=== PATIENT | male | born 1950 | race Caucasian/White ===

== ENCOUNTER 2021-04-18 16:56 | Inpatient (IN) ==
[2021-04-18 18:26] LABS: Basophils % 0.3 % (0.0-0.8); Hematocrit 37.4 VOL% (42.0-52.0); Hemoglobin 12.6 GM/DL (14.0-18.0); Immature Granulocytes % 0.3 %; Immature Granulocytes Absolute 0.02 #; Lymphocytes # 0.8 10*3/uL (1.4-4.0); Lymphocytes % 10.9 % (21.2-54.2); Mean Corpuscular HGB Conc 33.7 GM/DL (32-36); Mean Corpuscular Volume 86.4 FL (87-102); Mean Platelet Volume 8.8 FL (9.6-12.0); Monocytes % 9.7 % (1.7-12.7); Neutrophils % 78.8 % (38.7-73.9); Platelet Count 127 T/CUMM (130-400); Red Blood Count 4.33 MC/CUMM (3.8-5.5); Red Cell Distribution Width 12.6 % (9.3-17.3); White Blood Count 7.1 T/CUMM (4-12)
[2021-04-18 18:37] LABS: INR 1.1; PT Patient Result 12.3 SECS (10.5-12.0)
[2021-04-18 18:50] LABS: Alanine Aminotransferase 21 U/L (16-61); Alkaline Phosphatase 38 U/L (45-117); Aspartate Amino Transferase 23 U/L (0-37); Blood Urea Nitrogen 13 MG/DL (7-18); Calcium 7.9 MG/DL (8.5-10.1); Carbon Dioxide 31 MMOL/L (21-32); Estimated Glom Filtration Rate 113 ML/MIN; Glucose 198 MG/DL (74-106); Osmolality,Calculated 269.5 MOS/KG (273-304); Potassium 3.1 MMOL/L (3.5-5.1); Sodium 132 MMOL/L (136-145); Total Protein 6.5 G/DL (6.4-8.2)
[2021-04-18 18:53] LABS: Anisocytosis Slight; Band Neutrophils 6 % (0-10); Lymphocytes 12 % (20-55); Microcytosis Slight; Segmented Neutrophils 74 % (50-85); Total Cells Counted 100
[2021-04-18 18:54] LABS: Atypical Lymphocytes Few; Platelet Estimate Adequate
[2021-04-18 18:55] LABS: Polychromasia Slight
[2021-04-18 19:31] LABS: Bilirubin,Urine Negative (Negative); Blood, Urine Negative (Negative); Glucose,Urine (UA) 50 mg/dL (Negative); Hyaline Casts,Urine 1 /LPF (0-3); Ketones,Urine Negative (Negative); Mucus,Urine Occasional /LPF (Occasional); Nitrite,Urine Negative (Negative); Protein,Urine 30 MG/DL; Squamous Epithelial Cell,Urine Occasional /HPF (0-10); Urine Appearance CLEAR (Clear); Urine Color Amber (Yellow); Urine Specific Gravity 1.021 (1.001-1.035); Urine Urobilinogen < 2.0 EU/DL (<2.0)
[2021-04-18] MEDS ORDERED: ASPIRIN 325 MG TABLET PO STA (19:47)
[2021-04-18] MEDS ORDERED: POTASSIUM CHLORIDE 20 MEQ TABLET PO STA (19:53)
[2021-04-18] MEDS ORDERED: CALCIUM GLUCONATE RIDER 2,000 MG/100 ML PREMIX IV ONE (19:53)
[2021-04-18 20:22] LABS: Barbiturates Screen,Urine Negative (Negative); Benzodiazepines Screen,Urine Negative (Negative); Cannabinoid Screen,Urine Negative (Negative); Opiate Screen,Urine Positive (Negative); Phencyclidine Screen,Urine Negative (Negative)
[2021-04-18] MEDS ORDERED: hydrALAZINE 20 MG/1 ML VIAL IV PRN (20:26)
[2021-04-18] MEDS ORDERED: POTASSIUM CHLORIDE 20 MEQ TABLET PO PRN (20:26)
[2021-04-18] MEDS ORDERED: ONDANSETRON 4 MG/2 ML VIAL IV PRN (20:26)
[2021-04-18] MEDS ORDERED: DEXTROSE 10% 250 ML BAG IV PRN (20:26)
[2021-04-18] MEDS ORDERED: DEXTROSE 50% 25 GM/50 ML VIAL IV PRN (20:26)
[2021-04-18] MEDS ORDERED: GLUCAGON 1 MG VIAL IM PRN ×2 (20:26)
[2021-04-18 21:12] LABS: ABG Base Excess 5.9 MMOL/L (-2.5-2.5); ABG HCO3 28.9 MMOL/L (20-26); ABG Oxygen Saturation 63.5 % (95-100); ABG PCO2 45.9 MM HG (35-48); ABG PH 7.438 (7.35-7.45); ABG TCO2 27.1 MMOL/L (23-27); Allen Test Positive
[2021-04-18] MEDS ORDERED: ALBUTEROL/IPRATROPIUM 3 ML NEB RESP TX PRN (21:17)
[2021-04-18 21:18] LABS: ABG PO2 35.2 MM HG (80-95)
[2021-04-18] MEDS: SODIUM CHLORIDE 0.9% 1,000 ML IV SCH (21:22)
[2021-04-18] MEDS: INSULIN LISPRO 100 UNIT/ML SUBCUT SCH (21:22)
[2021-04-18] MEDS: cefTRIAXone 2,000 MG in SODIUM CHLORIDE 0.9% 100 ML IV SCH (21:23)
[2021-04-18] MEDS ORDERED: ZALEPLON 5 MG CAPSULE PO STA (22:18)
[2021-04-18] MEDS: ACYCLOVIR INJ 800 MG in SODIUM CHLORIDE 0.9% 250 ML IV SCH (22:57)
[2021-04-18] MEDS ORDERED: AMPICILLIN INJ 2,000 MG in SODIUM CHLORIDE 0.9% 100 ML IV ONE (23:00)
[2021-04-19] MEDS: VANCOMYCIN INJ 2,000 MG in SODIUM CHLORIDE 0.9% 500 ML IV SCH ×2 (00:48→14:20)
[2021-04-19 04:21] LABS: Basophils % 0.3 % (0.0-0.8); Eosinophils % 0.1 % (0.00-10.9); Hematocrit 36.6 VOL% (42.0-52.0); Hemoglobin 12.2 GM/DL (14.0-18.0); Immature Granulocytes % 0.4 %; Immature Granulocytes Absolute 0.03 #; Lymphocytes # 0.8 10*3/uL (1.4-4.0); Lymphocytes % 11.6 % (21.2-54.2); Mean Corpuscular HGB Conc 33.3 GM/DL (32-36); Mean Corpuscular Volume 87.8 FL (87-102); Mean Platelet Volume 8.9 FL (9.6-12.0); Monocytes % 11.8 % (1.7-12.7); Neutrophils % 75.8 % (38.7-73.9); Platelet Count 122 T/CUMM (130-400); Red Blood Count 4.17 MC/CUMM (3.8-5.5); Red Cell Distribution Width 12.6 % (9.3-17.3); White Blood Count 7.3 T/CUMM (4-12)
[2021-04-19 04:48] LABS: Band Neutrophils 3 % (0-10); Lymphocytes 9 % (20-55); Platelet Estimate Normal; Segmented Neutrophils 79 % (50-85); Total Cells Counted 100
[2021-04-19 05:18] LABS: Albumin 2.7 G/DL (3.4-5.0); Calcium 7.9 MG/DL (8.5-10.1); Osmolality,Calculated 268.4 MOS/KG (273-304); Risk Ratio 4.11; Thyroid Stimulating Hormone 1.24 uIU/ml (0.358-3.74); VLDL Cholesterol 29.6 MG/DL
[2021-04-19] MEDS: ACETAMINOPHEN 325 MG TABLET PO PRN (07:35)
[2021-04-19] MEDS: INSULIN LISPRO 100 UNIT/ML SUBCUT SCH ×4 (07:44→21:13)
[2021-04-19] MEDS: ASPIRIN EC 325 MG TABLET PO SCH (09:50)
[2021-04-19] MEDS: PANTOPRAZOLE 40 MG TABLET PO SCH (09:50)
[2021-04-19] MEDS: ACYCLOVIR INJ 800 MG in SODIUM CHLORIDE 0.9% 250 ML IV SCH ×3 (10:00→18:56)
[2021-04-19] MEDS: cefTRIAXone 2,000 MG in SODIUM CHLORIDE 0.9% 100 ML IV SCH ×2 (12:02→21:11)
[2021-04-19] MEDS ORDERED: LOPERAMIDE 2 MG CAPSULE PO ONE (13:49)
[2021-04-19] MEDS: SODIUM CHLORIDE 0.9% 1,000 ML IV SCH ×2 (14:40→18:56)
[2021-04-19] MEDS ORDERED: LORazepam 2 MG/1 ML VIAL IV ONE (22:06)
[2021-04-19] MEDS ORDERED: HALOPERIDOL 5 MG/ML AMP IM ONE (23:52)
[2021-04-20] MEDS: SODIUM CHLORIDE 0.9% 1,000 ML IV SCH ×3 (02:31→21:45)
[2021-04-20] MEDS: ACYCLOVIR INJ 800 MG in SODIUM CHLORIDE 0.9% 250 ML IV SCH (03:17)
[2021-04-20] MEDS: ACETAMINOPHEN 325 MG TABLET PO PRN (03:37)
[2021-04-20] MEDS: VANCOMYCIN INJ 2,000 MG in SODIUM CHLORIDE 0.9% 500 ML IV SCH (04:36)
[2021-04-20] MEDS: INSULIN LISPRO 100 UNIT/ML SUBCUT SCH ×4 (08:13→22:42)
[2021-04-20] MEDS: PANTOPRAZOLE 40 MG TABLET PO SCH (10:01)
[2021-04-20] MEDS: cefTRIAXone 2,000 MG in SODIUM CHLORIDE 0.9% 100 ML IV SCH (10:02)
[2021-04-20] MEDS: ASPIRIN EC 325 MG TABLET PO SCH (10:02)
[2021-04-20 12:06] LABS: Calcium 7.7 MG/DL (8.5-10.1); Osmolality,Calculated 271.1 MOS/KG (273-304)
[2021-04-20] MEDS ORDERED: diphenhydrAMINE CAP 25 MG CAPSULE PO PRN (21:16)
[2021-04-21 07:35] LABS: Bilirubin,Total 1.6 MG/DL (0.20-1.00); Calcium 7.9 MG/DL (8.5-10.1); Osmolality,Calculated 273.8 MOS/KG (273-304); Potassium 2.9 MMOL/L (3.5-5.1); Total Protein 6.3 G/DL (6.4-8.2)
[2021-04-21] MEDS: INSULIN LISPRO 100 UNIT/ML SUBCUT SCH ×4 (09:21→21:40)
[2021-04-21] MEDS: ASPIRIN EC 325 MG TABLET PO SCH (09:22)
[2021-04-21] MEDS: SODIUM CHLORIDE 0.9% 1,000 ML IV SCH ×2 (09:22→18:14)
[2021-04-21] MEDS ORDERED: LORazepam 2 MG/1 ML VIAL IV ONE (10:11)
[2021-04-21] MEDS ORDERED: POTASSIUM CHLORIDE 20 MEQ TABLET PO ONE (10:14)
[2021-04-21] MEDS: PANTOPRAZOLE 40 MG TABLET PO SCH (10:22)
[2021-04-21 10:47] LABS: Basophils % 0.1 % (0.0-0.8); Eosinophils # 0.1 10*3/uL (0.0-0.87); Hematocrit 32.9 VOL% (42.0-52.0); Immature Granulocytes % 0.6 %; Immature Granulocytes Absolute 0.04 #; Lymphocytes # 1.4 10*3/uL (1.4-4.0); Lymphocytes % 19.9 % (21.2-54.2); Mean Corpuscular HGB Conc 33.4 GM/DL (32-36); Mean Corpuscular Volume 86.1 FL (87-102); Mean Platelet Volume 9.4 FL (9.6-12.0); Monocytes % 10.5 % (1.7-12.7); Neutrophils % 67.9 % (38.7-73.9); Platelet Count 152 T/CUMM (130-400); Red Blood Count 3.82 MC/CUMM (3.8-5.5); Red Cell Distribution Width 12.6 % (9.3-17.3); White Blood Count 7.2 T/CUMM (4-12)
[2021-04-21] MEDS ORDERED: risperiDONE 0.5 MG TABLET PO SCH (18:00)
[2021-04-21] MEDS: MEMANTINE 5 MG TABLET PO SCH (21:39)
[2021-04-22] MEDS: SODIUM CHLORIDE 0.9% 1,000 ML IV SCH (06:09)
[2021-04-22 06:41] LABS: Basophils % 0.4 % (0.0-0.8); Eosinophils # 0.2 10*3/uL (0.0-0.87); Hematocrit 34.8 VOL% (42.0-52.0); Hemoglobin 11.4 GM/DL (14.0-18.0); Immature Granulocytes % 0.9 %; Immature Granulocytes Absolute 0.07 #; Lymphocytes # 1.3 10*3/uL (1.4-4.0); Lymphocytes % 17.2 % (21.2-54.2); Mean Corpuscular HGB Conc 32.8 GM/DL (32-36); Mean Corpuscular Volume 88.1 FL (87-102); Mean Platelet Volume 9.3 FL (9.6-12.0); Monocytes % 6.9 % (1.7-12.7); Neutrophils % 72.6 % (38.7-73.9); Platelet Count 148 T/CUMM (130-400); Red Blood Count 3.95 MC/CUMM (3.8-5.5); Red Cell Distribution Width 12.6 % (9.3-17.3); White Blood Count 7.7 T/CUMM (4-12)
[2021-04-22 06:50] LABS: Calcium 7.9 MG/DL (8.5-10.1); Osmolality,Calculated 279.5 MOS/KG (273-304); Potassium 3.3 MMOL/L (3.5-5.1)
[2021-04-22] MEDS ORDERED: POTASSIUM CHLORIDE 20 MEQ TABLET PO ONE (07:55)
[2021-04-22] MEDS: PANTOPRAZOLE 40 MG TABLET PO SCH (09:55)
[2021-04-22] MEDS: ASPIRIN EC 325 MG TABLET PO SCH (09:55)
[2021-04-22] MEDS: MEMANTINE 5 MG TABLET PO SCH (09:56)
[2021-04-22 11:53] VITALS: BP 131/74
[2021-04-22] MEDS: INSULIN LISPRO 100 UNIT/ML SUBCUT SCH ×2 (13:10→13:12)
== END 2021-04-22 13:51 | disposition home health service (06) | DRG 884 ==
LOC: EDBD → EDUNIT# → N.ED 16:56 → N.EDINP 20:26 → SUATTDRO 20:26 → N.TELES 04-19 18:15
PROVIDERS: ADMIT Internal Medicine Geriatric Medicine; ATTEND Internal Medicine